=== PATIENT | male | born 1980 | race Caucasian/White ===

== ENCOUNTER 2019-04-13 19:46 | Emergency (ER) | payer BC, OTHER ==
[2019-04-13] MEDS ORDERED: Proparacaine 0.5% Opth 15 ML BOT ONE (19:55)
[2019-04-13] MEDS ORDERED: Fluorescein Opthalmic Strip ONE (19:55)
== END 2019-04-13 20:25 | disposition home or self-care (01) ==
LOC: ERS 19:46
DX: T15.02XA Foreign body in cornea, left eye, initial encounter (principal); F17.220 Nicotine dependence, chewing tobacco, uncomplicated
CPT/HCPCS: 65222